=== PATIENT | male | born 1945 | race African-American/Black ===

== ENCOUNTER 2019-05-09 14:43 | Emergency (ER) | payer OTHER ==
[2019-05-09] MEDS ORDERED: Dexamethasone 10 MG/ML VIAL ONE (16:12)
[2019-05-09] MEDS ORDERED: HYDROcodone/Acetaminophen 10/325 mg Tablet ONE (16:12)
[2019-05-09 16:22] LABS: #Basophils 0.1 thou/uL (0.0-0.2); #Eosinphils 0.3 thou/uL (0.0-0.7); #Monocytes 0.6 thou/uL (0.11-0.59); #Neutrophils 2.8 thou/uL (1.40-6.50); %Basophils 1.4 % (0.0-1.0); %Eosinophils 5.9 % (0.0-10.0); %Lymphocytes 34.6 % (21.0-51.0); %Monocytes 9.8 % (0.0-10.0); %Neutrophils 48.3 % (42.0-75.0); Mean Corpuscular HGB CONC 33.6 g/dL (32.0-36.0); Mean Corpuscular Hemoglobin 32.2 pg (27.0-31.0); Mean Corpuscular Volume 95.8 fL (78.0-98.0); Mean Platelet Volume 8.8 fL (7.4-10.4); Platelet Count 307 thou/uL (130-400); RBC Distribution Width 11.3 % (11.5-14.5); Red Blood Cell (RBC) Count 3.42 mill/uL (4.70-6.10); White Blood Cell (WBC) Count 5.9 thou/uL (4.8-10.8)
--- NOTE | 2019-05-09 16:37 | RAD ---
EXAM: LEFT FOOT THREE VIEWS: 05/09/19 HISTORY: Left foot swelling with pain and abnormal laboratory findings. Patchy bone demineralization. Minimal degenerative changes. No acute fracture or dislocation or other significant acute osseous abnormality. IMPRESSION: Bone demineralization and degenerative changes without other acute process. POS: [facility]
[2019-05-09 16:44] LABS: ALT (SGPT) 30 U/L (8-55); AST (SGOT) 33 U/L (5-34); Albumin 3.9 g/dL (3.4-4.8); Alkaline Phosphatase 59 U/L (40-150); Anion Gap 10 mmol/L (10-20); BUN (Urea Nitrogen) 25 mg/dL (8.4-25.7); Bilirubin, Total 0.6 mg/dL (0.2-1.2); CK (CPK) 381 U/L (30-200); Calc. Creatinine Clearance 0 mL/min (70-130); Calcium 9.3 mg/dL (7.8-10.44); Carbon Dioxide 26 mmol/L (23-31); Chloride 107 mmol/L (98-107); Estimated GFR-MDRD 46; Globulin 3.5 g/dL (2.4-3.5); Glucose 83 mg/dL (83-110); Lipase 27 U/L (8-78); Potassium 5.3 mmol/L (3.5-5.1); Protein, Total 7.4 g/dL (5.8-8.1); Sodium 138 mmol/L (136-145)
== END 2019-05-09 17:20 | disposition still patient (30) ==
LOC: ERS 14:43 → EEVIPCON 14:43 → ERS 17:20
DX: N28.9 Disorder of kidney and ureter, unspecified (principal); M10.9 Gout, unspecified; G51.0 Bell's palsy; E03.9 Hypothyroidism, unspecified; I10 Essential (primary) hypertension; Z87.891 Personal history of nicotine dependence; Z79.899 Other long term (current) drug therapy
CPT/HCPCS: 80053; 82550; 83690; 83880; 84484; 85025; 93005; 96361; 96374; J1100